=== PATIENT | female | born 1970 | race Caucasian/White ===

== ENCOUNTER 2020-01-22 09:40 | Emergency (ER) | payer OTHER ==
[2020-01-22] MEDS ORDERED: Clindamycin 150 MG CAP ONE (10:18)
== END 2020-01-22 10:22 | disposition home or self-care (01) ==
LOC: MADERS 09:40
DX: K02.9 Dental caries, unspecified (principal); E11.9 Type 2 diabetes mellitus without complications; F41.9 Anxiety disorder, unspecified; Z79.84 Long term (current) use of oral hypoglycemic drugs; Z79.899 Other long term (current) drug therapy
CPT/HCPCS: 99282

== ENCOUNTER 2024-04-07 10:05 | Emergency (ER) | payer OTHER | END 2024-04-07 11:30 | disposition home or self-care (01) | LOC: MADERS 10:05 | DX: M25.512 Pain in left shoulder (principal); K08.89 Other specified disorders of teeth and supporting structures; H92.01 Otalgia, right ear; M65.20 Calcific tendinitis, unspecified site; E11.9 Type 2 diabetes mellitus without complications; I10 Essential (primary) hypertension; W17.89XA Other fall from one level to another, initial encounter; Z79.84 Long term (current) use of oral hypoglycemic drugs; Z79.899 Other long term (current) drug therapy | CPT/HCPCS: 71045 ==